=== PATIENT | female | born 1975 | race Caucasian/White ===

== ENCOUNTER 2016-12-05 10:36 | Inpatient (IN) | payer MEDICARE ==
[~2016-12-05] VITALS: Ht 154.9 cm; Wt 113.4 kg
[2016-12-05 12:42] LABS: BASOPHILS 0.3 % (0.0-2.0); EOSINOPHILS 1.3 % (0-7); HEMATOCRIT 35.5 % (36.0-48.0); HEMOGLOBIN 11.4 g/dL (12-16); MCH 30.9 pg (26.0-34.0); MCHC 32.1 g/dL (31.0-37.0); MCV 96.2 fL (80.0-100.0); MEAN PLATELET VOLUME 9.3 fL (7.4-10.4); MONOCYTES 6.2 % (2-11); NEUTROPHILS 65.2 % (40-80); PLATELET COUNT 243 10x3/uL (130-400); RBC 3.69 10x6/uL (4.00-5.40); RDW 14.5 % (11.5-14.5); WBC 8.8 10x3/uL (4.8-10.8)
[2016-12-05] MEDS ORDERED: NOVOLOG SC (12:42)
[2016-12-05] MEDS ORDERED: LASIX80 MG PO (12:43)
[2016-12-05] MEDS ORDERED: OMEPRAZOLE20 M1 PO (12:43)
[2016-12-05] MEDS ORDERED: ANASTROZOLE1 MG PO (12:44)
[2016-12-05] MEDS ORDERED: GABAPENTIN100 MG PO (12:44)
[2016-12-05] MEDS ORDERED: RENVELA800 MG PO (12:45)
[2016-12-05] MEDS ORDERED: PHOSLO667 MG PO (12:45)
[2016-12-05] MEDS ORDERED: CYCLOBENZAPRINE10 MG PO (12:46)
[2016-12-05 12:47] VITALS: BMI 426.2
[2016-12-05 13:00] LABS: APTT 28.6 SECONDS (22.8-39.4); INR 1.1 (0.85-1.17); PROTIME 14.1 SECONDS (11.6-15.0)
[2016-12-05 13:05] LABS: ANION GAP 19.5 mmol/L (8-16); CALCIUM 9.8 mg/dL (8.5-10.1); CARBON DIOXIDE 24.9 mmol/L (21.0-32.0); CREATININE - SERUM 7.3 mg/dL (0.6-1.3); POTASSIUM - SERUM 4.4 mmol/L (3.5-5.1)
--- NOTE | 2016-12-05 13:25 | NUR ---
CALLED ANESTHESIA FOR STIVEN. TALKED WITH LIBERTAD STERLING ANESTHESIA UNABLE TO GET IV. N/S DOES NOT SCAN. USES [facility] WONT LET ME PUT IN SYSTEM.
--- NOTE | 2016-12-05 13:53 | NUR ---
REPORTED 303 SUGAR TO OPERATIONS PROFESSIONAL OKAY FOR SURGERY PER RENAL.
--- NOTE | 2016-12-05 15:01 | NUR ---
1429 BLOOD SUGAR VIA FINGER STICK ORDER PER ANESTHESIA WAS [address] CANTRELL ANESTHESIA[address]
--- NOTE | 2016-12-05 15:45 | NUR ---
NO SCD, PT STATES HX BLOOD CLOTS
[2016-12-05 20:59] LABS: POTASSIUM - SERUM 4.7 mmol/L (3.5-5.1)
--- NOTE | 2016-12-05 20:59 | NUR ---
REPORT RECEIVED FROM DELMI KEITH.
--- NOTE | 2016-12-05 21:36 | NUR ---
ARRIVED TO FLOOR VIA BED, ACCOMPANIED BY HOSPITAL STAFF AND FAMILY. HEAVILY SEDATED, IS STAYING AT BEDSIDE. VSS, LEFT ARM MAXSORB DRESSINGS C/D/I. CALL LIGHT IN REACH AND ORIENTED TO UNIT. WILL CONTINUE TO MONITOR. SEE NURSE ASSESSMENT.
--- NOTE | 2016-12-05 21:59 | NUR ---
NUMBNESS REPORTED TO LEFT ARM, PULSE PALPABLE. BRUIT AND THRILL AUDIBLE AND PALPABLE. WILL CONTINUE TO MONITOR, REPOSITIONED TO RIGHT SIDE. CALL LIGHT IN REACH.
[2016-12-06 02:05] VITALS: BP 194/91
--- NOTE | 2016-12-06 02:20 | NUR ---
LYING IN BED WITH CALL LIGHT IN REACH. WILL CONTINUE WITH PLAN OF CARE.
[2016-12-06 05:19] VITALS: BP 138/76
--- NOTE | 2016-12-06 06:21 | NUR ---
FSBS 482, STAT GLUCOSE ORDERED. AWAITING LAB RESULTS
--- NOTE | 2016-12-06 07:13 | NUR ---
RECEIVED REPORT FROM AUTOMOTIVE MANAGER NURSE, ALDEN KEITH. PT IN BED, DENIES ANY NEEDS AT THIS TIME. CALL LIGHT IN REACH, FAMILY AT BEDSIDE. NAD NOTED, WILL CONTINUE TO MONITOR.
--- NOTE | 2016-12-06 07:58 | NUR ---
CALLED PHARMACY AND SPOKE WITH CHICO, INFORMED HIM THAT I NEED INSULIN FOR PT TO COVER CRITICAL LAB.
--- NOTE | 2016-12-06 08:06 | NUR ---
ADMINISTERED 10UNITS OF HUMULIN R FOR CRITICAL BLOOD SUGAR OF 492, PER SLIDING SCALE. WILL NOTIFY DOCTOR. PT FIXING TO EAT BREAKFAST, DENIES ANY NEEDS AT THIS TIME. CALL LIGHT IN REACH, FAMILY AT BEDSIDE, NAD NOTED, WILL CONTINUE TO MONITOR.
[2016-12-06 08:50] VITALS: BP 186/61
[2016-12-06 10:36] VITALS: Ht 154.9 cm; Wt 113.4 kg
--- NOTE | 2016-12-06 11:56 | NUR ---
ADMINISTERED 10 UNITS OF HUMULIN R FOR BLOOD SUGAR OF 458, PER SLIDING SCALE, ALSO GAVE 4MG OF ZOFRAN FOR C/O NUASEA. PT UP TO SIDE OF BED, DENIES ANY NEEDS AT THIS TIME. CALL LIGHT IN REACH, FAMILY AT BEDSIDE, NAD NOTED, WILL CONTINUE TO MONITOR.
--- NOTE | 2016-12-06 12:48 | NUR ---
PT C/O LEFT UPPER ARM PAIN AND NUMBNESS TO LT HAND. PULSE TO LEFT ARM PALABLE, ALSO WAS ABLE TO HEAR THE BRUI AND FILL THE THRIL AT FISTULA SITE. SITE A LITTLE SWOLLEN AND RED. WILL SEE IF PT CAN HAVE SOMETHING FOR PAIN, NAD NOTED, WILL CONTINUE TO MONITOR.
--- NOTE | 2016-12-06 13:02 | NUR ---
ADMINISTERED 0.1MG OF BUPRENEX FOR PAIN LEVEL OF 7/10. PT IN BED, STATES NAUSEA IS A LITTLE BETTER, DENIES ANY OTHER NEEDS AT THIS TIME. AT BEDSIDE, CALL LIGHT IN REACH, NAD NOTED, WILL CONITNUE TO MONITOR.
--- NOTE | 2016-12-06 14:00 | NUR ---
PT TRANSFERED TO DIALYIS VIA WHEELCHAIR, NAD NOTED.
--- NOTE | 2016-12-06 17:35 | NUR ---
RECEIVED PT BACK TO ROOM 2102, VIA WHEELCHAIR, NAD NOTED.
--- NOTE | 2016-12-06 17:58 | NUR ---
HEMODIALYSIS COMPLETED, NET FLUID REMOVAL OF ONLY 0.5 LITERS PER PATIENT'S REQUEST. EXPLAINED UF GOAL OF 3 LITERS, HOWEVER PATIENT STATES THAT SHE HAS BEEN N/V PAST 2-3 DAYS AND DOES NOT THINK SHE HAD ANY FLUID ON HER. PATIENT TOLERATED WELL, BLOOD WAS RETURNED, LINES FLUSHED, AND HEPARIN DWELLING. SOME EDUCATION ABOUT HEMOSPLIT WAS PROVIDED DURING SESSION ASWELL. PATIENT TAKEN BACK TO ROOM VIA WC.
[2016-12-06 20:50] VITALS: BP 148/60
--- NOTE | 2016-12-06 21:11 | NUR ---
SITTING UP AT BEDSIDE. FAMILY PRESENT. FSBS 314, PROVIDED 4 UNITS HUMULIN. PT HOLDING EMESIS BAG. PROVIDED ZOFRAN.
[2016-12-07 02:50] VITALS: BP 136/70
--- NOTE | 2016-12-07 04:57 | NUR ---
CALL LIGHT IN REACH, WILL CONTINUE WITH PLAN OF CARE.
[2016-12-07 05:22] VITALS: BP 130/77
[2016-12-07 05:43] LABS: BASOPHILS 0.3 % (0.0-2.0); EOSINOPHILS 0.3 % (0-7); HEMATOCRIT 31.1 % (36.0-48.0); HEMOGLOBIN 9.9 g/dL (12-16); IMMATURE GRANULOCYTES 0.6 % (0-5); LYMPHOCYTES 17.8 % (15-50); MCH 30.9 pg (26.0-34.0); MCHC 31.8 g/dL (31.0-37.0); MCV 97.2 fL (80.0-100.0); MEAN PLATELET VOLUME 9.5 fL (7.4-10.4); MONOCYTES 8.2 % (2-11); NEUTROPHILS 72.8 % (40-80); PLATELET COUNT 199 10x3/uL (130-400); RDW 14.5 % (11.5-14.5); WBC 6.9 10x3/uL (4.8-10.8)
[2016-12-07 05:57] LABS: ANION GAP 17.6 mmol/L (8-16); CALCIUM 8.5 mg/dL (8.5-10.1); CARBON DIOXIDE 29.4 mmol/L (21.0-32.0); PHOSPHOROUS 7.1 mg/dL (2.5-4.9)
[2016-12-07 06:04] LABS: CREATININE - SERUM 5.2 mg/dL (0.6-1.3)
--- NOTE | 2016-12-07 07:42 | NUR ---
received pt report. will continue plan of care. no other needs at this time. will continue to monitor.
--- NOTE | 2016-12-07 08:39 | NUR ---
PT IS ALERT. ASSESSMENT DONE PER FLOWSHEET. NO OTHER NEEDS AT THIS TIME. DC TEACHING ALSO DONE IV REMOVED PT WHEELED TO ORDC
--- NOTE | 2016-12-07 09:08 | NUR ---
Patient Name: MEREDITH ROMERO Admission Status: Elective Accout number: [id number] Admission Date: 12-05-2016 : 1975 Admission Diagnosis: Attending: JEZ Current LOS: 2 Anticipated DC Date: 12-07-2016 Planned Disposition: Home Primary Insurance: MEDICARE A & B LATE ENTRY: Discharge Planning Comments: * Is the patient Alert and Oriented? Yes 0 * How many steps to enter\exit or inside your home? 2 0 * PCP DR. EMMANUEL IN [place] 0 * [facility] [place], [place]. 0 * Preadmission Environment Home with Family 0 * ADLs Independent 0 * Equipment None 0 * Other Equipment NO MEDICAL EQUIPMENT PROVIDER PREFERENCE 0 * List name and contact numbers for known caregivers / representatives who currently or will assist patient after discharge: VERNA ROMERO, SPOUSE, 0 * Community resources currently utilized Other 0 * Please name any agencies selected above. OUTPATIENT DIALYSIS, [facility], [place], M//, 0915, DRIVES SELF TO AND FROM 0 * Additional services required to return to the preadmission environment? No 0 * Can the patient safely return to the preadmission environment? Yes 0 * Has this patient been hospitalized within the prior 30 days at any hospital? No 0 CM MET WITH PT AND SPOUSE IN ROOM TO DISCUSS DISCHARGE PLANNING AND NEEDS. PT REPORTS LIVING AT HOME INDEPENDENTLY WITH HER SPOUSE. PT HAS NO MEDICAL EQUIPMENT AND NO OUTSIDE SERVICES ASSISTING IN THE HOME. CM DISCUSSED AVAILABILITY OF HOME HEALTH, REHAB SERVICES AND MEDICAL EQUIPMENT. PT DENIES DISCHARGE NEEDS, REPORTS HER SPOUSE IS HERE TO PICK HER UP FOR DISCHARGE HOME. PT ATTENDS OUTPATIENT DIALYSIS ON // SCHEDULE IN [place]. IMPORTANT MESSAGE FROM MEDICARE PROVIDED AND EXPLAINED. Diamond Expert: Angel Bey
--- NOTE | 2016-12-09 12:37 | HP ---
PATIENT: MEREDITH ROMERO MEDICAL RECORD: [id number] ACCOUNT: [id number] LOCATION:[facility] D.2103 : [birth year] ADMISSION DATE: 12/05/16 HISTORY AND PHYSICAL EXAMINATION HISTORY OF PRESENT ILLNESS: This is a 41-year-old female that had a left radiocephalic fistula placed, 12/05/[address] Gutierrez. She had significant postoperative pain and was lethargic, and was in need of dialysis the following day 12/06/2016. She is having pain in her wrist. She is able to move her hands. No nausea or vomiting. No headache, fever or chills. All the rest of the review of system are negative. PAST MEDICAL HISTORY: 1. ESRD on dialysis in [place]. 2. Diabetes type 2 with diabetic nephropathy. 3. Type 2 diabetes. 4. Edema. 5. Hyperphosphatemia. 6. Secondary hyperparathyroidism. HOME MEDICATIONS: Arimidex 1 mg a day, PhosLo with meals t.i.d. 1-2 667 mg tablets, Neurontin 100 mg p.o. at bedtime, Lasix 80 mg p.o. b.i.d., and insulin sliding scale. ALLERGIES: NKDA. PAST SURGICAL HISTORY: 1. Tunneled catheter placement. 2. Radiocephalic AV fistula on the left, 12/05/2012. SOCIAL HISTORY: She is . No tobacco, alcohol or illicit drugs. He lives in [facility]. PHYSICAL EXAMINATION: VITAL SIGNS: 152/70, 92 heart rate, 18 respiratory rate, this morning. GENERAL: She is alert postoperatively, but somewhat lethargic, but no focal neurological deficit and is requesting pain medication. indicated that her mental status is at baseline. HEENT: Normocephalic, atraumatic. Cranial nerves II through XII are intact. NECK: No JVD or thyromegaly. Her tunnel catheter is clean with no sign of infection. EXTREMITIES: Left radiocephalic fistula with a thrill. She is able to move her hand. +2 brachial pulses even bilateral. Positive lower extremity edema. NEUROLOGIC: No focal neurological deficit. LABORATORY DATA: Consistent with ESRD. H&H is 11.4/35.5 with a white count of 8800 and a platelet count of 243,000. INR was 1.1. ASSESSMENT AND PLAN: 1. Status post AV fistula by Dr. Gutierrez with postoperative pain. 2. Diabetes mellitus, on a sliding scale. 3. Hyperphosphatemia. We will continue her PhosLo. 4. Anemia of CKD. If she stays in the hospital, we will continue her erythropoietin. 5. Hypertension. Did not see any medications on her med list, but we will HISTORY AND PHYSICAL [id number] MEREDITH ROMERO follow her blood pressure. PLAN: 1. Appreciate Dr. Gutierrez. 2. Dialysis as scheduled. 3. Pain control. 4. Follow hematocrit, BMP and phosphorus. TRANSINT:[id number] Voice Confirmation ID: [id number] DOCUMENT ID: [id number] JESÚS BARBER MD at 1237 CC: [id number] DICTATION DATE: 12/07/16719 VENEER SAWYER: 12/07/16 0743 DIS IN 12/07/16 [address] [place] [address]
--- NOTE | 2016-12-14 13:07 | OP ---
PATIENT NAME: MEREDITH LYONS MEDICAL RECORD: [id number] :[birth year] LOCATION:D. D.2103 ADMISSION DATE:12/05/16 SURGEON: MAMIE OLIVAS MD DATE OF OPERATION: 12/05/2016 REFERRING PHYSICIAN: Dr. Jose Renee and Dr. Chao of [place]. PREOPERATIVE DIAGNOSES: End-stage renal disease with a complication of a dialysis access AV fistula in the left forearm with chronic total occlusion of the proximal radial artery and filling of the fistula via the ulnar artery and palmar arch with now an arterial anastomotic stenosis and also a severe venous outflow stenosis in the fistula. Additionally, the patient is status post bilateral mastectomies and a left sentinel lymph node biopsy for breast cancer. She has mild contracture or loss of abduction of the left arm and shoulder. She has no lymphedema. POSTOPERATIVE DIAGNOSES: End-stage renal disease with a complication of a dialysis access AV fistula in the left forearm with chronic total occlusion of the proximal radial artery and filling of the fistula via the ulnar artery and palmar arch with now an arterial anastomotic stenosis and also a severe venous outflow stenosis in the fistula. Additionally, the patient is status post bilateral mastectomies and a left sentinel lymph node biopsy for breast cancer. She has mild contracture or loss of abduction of the left arm and shoulder. She has no lymphedema. OPERATION PERFORMED: Ligation of nonfunctional though still patent left radiocephalic AV fistula and then implantation of a left axillary-axillary loop [place] hybrid PTFE AV graft with a 5 cm long 8 mm diameter Viabahn stent incorporated in the venous end of the graft and facilitating anastomosis that was very small and difficult to approach the axillary vein. All this was done with axillary vein, contrast injection and distal subtraction angiography and then at the completion of the operation also, the patient had a 19-cm HemoSplit tunneled central dialysis catheter inserted via the right internal jugular vein using fluoroscopy and ultrasonic guidance. SURGEON: Mamie Olivas MD ANESTHESIA: General with LMA per CV TECH. PREOPERATIVE NOTE: Ms. Lyons is a 41-year-old diabetic patient with end-stage renal disease, who has been on dialysis now for about 2 years with ____ radiocephalic Sole type AV fistula constructed 3 years ago. She has had problems with cannulation being difficult and her dialysis efficiency has diminished severely. She had a fistulogram done yesterday at [facility] by Dr. Renee and she was found to have an outflow stenosis in the cephalic vein, arterial anastomotic stenosis and chronic total occlusion of the proximal radial artery with filling of the fistula totally via the ulnar artery and via the palmar arch. She was referred to me and we agreed yesterday that she would be operated today and that I would plan to ligate the existing fistula and consider performing a brachial artery to cephalic vein arteriovenous fistula or implanting the graft. Our concern is that she is at severe risk of steal. She will also with that scenario require a dialysis catheter. She went this morning to [facility] as an outpatient to have dialysis at 6:30 in the morning and she was found that although the fistula was patent, it could not be cannulated successfully, so she has not had dialysis in over 48 hours. OPERATIVE REPORT [id number] MEREDITH LYONS DESCRIPTION OF PROCEDURE: With the patient under general anesthesia, she is prepped and draped in sterile manner. I examined her arm with ultrasound and saw the large cephalic vein and I really did not see a stenotic area in the outflow vein. The patient's brachial artery in the antecubital space was quite small in fact her axillary artery and even the axillary vein were quite small. I explored the brachial artery through a transverse antecubital incision and down the brachial artery to be small and the cephalic vein or median cubital vein at that level quite large. I did not think that a primary AV fistula there would solve the problem as she would still be a very high risk for developing a steal syndrome and I noted on ultrasound that the cephalic vein in the upper arm was rather deep at least a centimeter or more in depth. It might be a difficult access requiring translocation. I then went on to expose the AV fistula just proximal to the anastomosis and through another linear vertical incision, I ligated the fistula doubly with 2-0 silk ties. I then committed to going ahead with an axillary-axillary loop AV graft as the access, most likely to avoid or least likely to cause [place] and provide the earliest dialysis access. I made a transverse axillary incision. I found that the patient's contracture in the shoulder area did make it difficult to expose the area fully and the dissection of the axillary artery and axillary vein was quite difficult due to patient's obesity and the loss of abduction in the shoulder. The vein was quite small and I thought it would be best to use a hybrid type of graft using an endovascular stent type anastomosis. I chose a 6-mm diameter 50 cm long hybrid stent with an 8 mm diameter 5 cm long Viabahn stent homograft. I accessed the axillary vein with micropuncture technique and this led and subsequently a 6-Macedonian introducer was placed. Contrast injection with digital subtraction angiography demonstrated patency of the axillary and subclavian veins though the axillary vein, particularly the distal half was a very small caliber. I was then able to place a 12-Macedonian peel-away introducer over a guidewire and through that successfully inserted the Viabahn stent end of the hybrid graft and deployed the stent and then performed a venography through the new graft and demonstrated a satisfactory positioning of the graft, although the vein is small. There was free flow of contrast through the area. I placed the graft in a subcutaneous tunnel as close to the surface or as close to the skin as possible. I utilized the antecubital incision as a counter incision and 1 additional counter incision was placed on the lateral aspect of the arm. The graft was brought back to the axillary wound and the axillary artery was occluded with doubly looped Silastic tapes. It was opened and then flushed proximally and distally with heparinized saline and the graft was shortened a bit and bevelled and anastomosed end-to-side to the artery with running 6-0 Prolene. Hemostasis was additionally completed with some fibrillar hemostatic material and when the occluding loops and clamps were released, flow was established in the graft and hemostasis was adequate. I performed a completion angiogram through a micropuncture catheter in the apex of the loop of the graft and demonstrated that the venous outflow was satisfactory, although I would have a preferred the larger diameter axillary vein and I demonstrated that there was indeed flow in the graft and with outflow occlusion demonstrated a satisfactory appearance of the arterial anastomosis with good flow distally into the arm. The wounds were all irrigated with Ancef/gentamicin solution and infiltrated with 0.25% Marcaine with epinephrine and closed with interrupted inverted 3-0 Vicryl and running intracuticular 4-0 Monocryl. No drain was utilized. The incisions were all sealed with Dermabond glue and dressed with Maxorb Ag, Tegaderm and Cavilon skin prep. The right neck and chest were then exposed, they had been prepped and draped at the beginning of the procedure. I used ultrasound to locate the right internal OPERATIVE REPORT [id number] MEREDITH LYONS jugular vein. It was of normal caliber and fully compressible with no sonographic abnormalities. I made an incision at the base of the neck on the right over the vein and through that incision placed a needle and guidewire under ultrasound guidance. Under fluoroscopy, the guidewire was placed in the right atrium and serial dilators passed over the wire and lastly, a dilator peel-away introducer was inserted. I chose a 19-cm long HemoSplit, identified the proper entry site and placed the catheter through that and through a subcutaneous tunnel up to the cervical wound and the catheter was inserted through the peel-away sheath and it was removed. Fluoroscopy demonstrated satisfactory positioning of the catheter well into the right atrium without any kinks or other complications. Both lumens of the catheter were accessed and aspirated, free return of blood confirmed from each. They were then flushed with saline ____ and then heparin locked with 100 unit per cc heparin and clamped and capped. The incisions were closed with interrupted inverted 3-0 Vicryl and the catheter sutured to the skin with 2-0 silk. Dermabond glue was used to seal the wounds and they were dressed with Maxorb AG, Tegaderm and Cavilon skin prep. The patient was then awakened from her anesthetic and in stable condition taken to the recovery room. There, we have requested a chest x-ray as well as a serum potassium and blood sugar. The patient will need to remain in the hospital in this evening and she will have dialysis here either this evening or tomorrow. She will be able to return to her home in [place], [place] in a day or two when we know that she has a reliable dialysis access and her postoperative pain and any other complications adequately controlled. I will plan to see her back in my office in 2 weeks for wound check and it is quite possible that soon after that, she will be able to start dialysis with her new graft. I do think that we should plan on her having a fairly early followup fistulogram. It may yet be necessary to perform balloon angioplasty of the axillary vein proximal to the stent and possibly even insert additional stenting to a more proximal site in the vein. Blood loss estimated at 200 cc was unreplaced. All sponges, instruments and needles were accounted for. No drain was used and no surgical specimen was submitted for histopathology. TRANSINT:[id number] Voice Confirmation ID: [id number] DOCUMENT ID: [id number] MAMIE OLIVAS MD at 1307 CC: JOSE RENEE MD and CHRISTIANE CHAO III MD [id number] DICTATION DATE: 12/05/162050 PLATE COLORER: 12/05/162229 DIS IN 12/07/16 [place] [id number] [place] [id number]
== END 2016-12-07 08:39 | disposition home or self-care (01) | DRG 252 ==
LOC: D.OPS 10:36 → D.M2 19:28 → D.OPS 22:01 → D.M2 23:17
PROVIDERS: Internal Medicine Nephrology; Surgery; ADMIT Internal Medicine Nephrology
DX: T82.590A Other mechanical complication of surgically created arteriovenous fistula, initial encounter (principal); N18.6 End stage renal disease; I12.0 Hypertensive chronic kidney disease with stage 5 chronic kidney disease or end stage renal disease; Z68.42 Body mass index [BMI] 45.0-49.9, adult; E11.22 Type 2 diabetes mellitus with diabetic chronic kidney disease; Z99.2 Dependence on renal dialysis; Z79.4 Long term (current) use of insulin; E11.21 Type 2 diabetes mellitus with diabetic nephropathy; E21.3 Hyperparathyroidism, unspecified; D63.1 Anemia in chronic kidney disease; E66.01 Morbid (severe) obesity due to excess calories; K21.9 Gastro-esophageal reflux disease without esophagitis

== ENCOUNTER 2016-12-28 10:05 | Inpatient (IN) | payer MEDICARE ==
[~2016-12-28] VITALS: Ht 154.9 cm; Wt 108.2 kg
[~2016-12-28 10:05] MED LIST: ANASTROZOLE1 MG PO; CYCLOBENZAPRINE10 MG PO; GABAPENTIN100 MG PO; LASIX80 MG PO; NOVOLOG SC; OMEPRAZOLE20 M1 PO; PHOSLO667 MG PO; RENVELA800 MG PO
[2016-12-28 12:13] VITALS: BMI 47.3
[2016-12-28 12:30] LABS: BASOPHILS 0.3 % (0.0-2.0); EOSINOPHILS 1.4 % (0-7); HEMATOCRIT 31.5 % (36.0-48.0); HEMOGLOBIN 9.8 g/dL (12-16); IMMATURE GRANULOCYTES 0.3 % (0-5); LYMPHOCYTES 25.9 % (15-50); MCH 30.3 pg (26.0-34.0); MCHC 31.1 g/dL (31.0-37.0); MCV 97.5 fL (80.0-100.0); MEAN PLATELET VOLUME 9.3 fL (7.4-10.4); MONOCYTES 5.3 % (2-11); NEUTROPHILS 66.8 % (40-80); PLATELET COUNT 168 10x3/uL (130-400); RBC 3.23 10x6/uL (4.00-5.40); RDW 14.3 % (11.5-14.5); WBC 5.9 10x3/uL (4.8-10.8)
[2016-12-28 12:37] LABS: ANION GAP 13.2 mmol/L (8-16); CALCIUM 8.4 mg/dL (8.5-10.1); CARBON DIOXIDE 29.5 mmol/L (21.0-32.0); CREATININE - SERUM 2.9 mg/dL (0.6-1.3); POTASSIUM - SERUM 3.7 mmol/L (3.5-5.1)
[2016-12-28 12:47] LABS: APTT 31.9 SECONDS (22.8-39.4); INR 1.03 (0.85-1.17); PROTIME 13.4 SECONDS (11.6-15.0)
[2016-12-28 19:54] VITALS: BP 162/68
[2016-12-28] MEDS ORDERED: CYCLOBENZAPRINE10 MG PO (20:05)
[2016-12-28] MEDS ORDERED: LASIX80 MG PO (20:05)
[2016-12-28] MEDS ORDERED: GABAPENTIN100 MG PO (20:07)
[2016-12-28] MEDS ORDERED: OMEPRAZOLE20 M1 PO (20:09)
[2016-12-28] MEDS ORDERED: PHOSLO667 MG PO (20:09)
[2016-12-28] MEDS ORDERED: RENVELA0.8 GM PO (20:11)
--- NOTE | 2016-12-28 20:18 | NUR ---
RECIEVED PT TO FLOOR FROM POST OP VIA STRETCHER. LETHARGIC/SLEEPING. WILL ROUSE TO VOICE AND ANSWER QUESTIONS. ACCOMPANIED BY SPOUSE. BEDSIDE REPORT RECIEVED FROM RAYMUNDO. VSS. VS BEING MONITORED EVERY 15 MINUTES. LEFT AVF WITH DRESSING C/D/I AND ARM ELEVATED ON PILLOW. RIGHT CW HEMOSPLIT WITH NS @ KVO TO BLUE PORT. O2 @ 2L/NC WITH NONLABORED RESPIRATIONS. POST OP NURSE STATES PT HAS ALREADY RECIEVED THE ORDERED VANCOMYCIN AND THE ANCEF.
--- NOTE | 2016-12-28 22:40 | NUR ---
PT DOZING, AT BEDSIDE. NS @ KVO CONTINUING TO BLUE PORT ON HEMOSPLIT. PT HAS BEEN UP TO BATHROOM X 1 AND GAIT IS STEADY AND REQUIRES ONLY SUPERVISION. CPOC.
[2016-12-29] VITALS (7 sets, daily range): BP systolic 124–166; BP diastolic 43–68; Ht 154.9 cm; Wt 108.2 kg
--- NOTE | 2016-12-29 07:19 | NUR ---
PT SITTING UP IN BED DENIES NEEDS WILL CONT TO MONITOR.
--- NOTE | 2016-12-29 10:11 | NUR ---
PT BS 372. MARY RENAL LINUS ORDERED MEDS. CALLED PHARM FOR THEM TO BRING UP INSULINS. SPOKE TO VICENTE
--- NOTE | 2016-12-29 13:09 | NUR ---
PT SITTING UP TO CHAIR DENIES NEEDS. WILL CONT TO MONITOR.
--- NOTE | 2016-12-29 15:13 | NUR ---
CALLED PHARM FOR PT MEDICATIONS TO BE BROUGHT UP
--- NOTE | 2016-12-29 15:45 | NUR ---
PT FSBS 507 PT IS ALERT AND ORIENTED. PAGED MARY BARRIGA. SHE CALLED BACK SAID TO GIVE PT 20 UNITS HUMULIN NOW AND THEN ORDER NPH 10 UNITS ALSO. SAID THAT PT WAS SUPPOSED TO BE BRINGING INSULIN PUMP FROM HOME SOON. GIVING 20 UNITS HUMULIN, HAVE TO WAIT FOR PHARM TO BRING UP NPH THEN WILL GIVE. WILL RECHECK PT IN A COUPLE OF HOURS AND SEE IF SUGAR HAS DROPPED IF NOT WILL TREAT AGAIN.
--- NOTE | 2016-12-29 18:41 | NUR ---
PT BS WAS 440. CALLED MARY BARRIGA. SHE ORDERED ANOTHER DOSE OF HUMULIN 20 UNITS ONE TIME. AND NPH 5 UNITS ONE TIME. I WAS ABLE TO SCAN THE HUMULIN BECAUSE IT WAS ALREADY ON THE MAR AN UNSCHEDULED DOSE. (PHARM WAS NOT HERE TO VERIFY THE MEDS), THE NPH HOWEVER I WAS NOT ABLE TO SCAN ON THE EMAR BECAUSE THE PHARM DID NOT VERIFY THEM. I VERIFIED BOTH OF THESE INSULINS WITH MULTIPLE NURSES INCLUDING MICHEAL KEITH AND LYUBOV COLLADO. I DID GIVE BOTH INSULINS BUT WAS UNABLE TO SCAN THE NPH WILL PASS ON IN REPORT TO NIGHT NURSE.
--- NOTE | 2016-12-29 18:54 | NUR ---
CHANGED HEMOSPLIT DRESSING SOLE TIER INITIATED. SIGNED AND DATED.
--- NOTE | 2016-12-29 19:30 | NUR ---
ASSESSMENT COMPLETE, DENIES NEEDS AT THIS TIME. HOB UP SR UP X2, C/L IN REACH. FAMILY MEMBERS AT BEDSIDE FOR NIGHT. HEMESPLIT NOTED TO CHEST. ON RA. CONTINUE TO MONITOR.
[2016-12-30 02:01] VITALS: BP 101/50
[2016-12-30 05:48] VITALS: BP 132/80
[2016-12-30 06:30] LABS: BASOPHILS 0.3 % (0.0-2.0); EOSINOPHILS 1.9 % (0-7); HEMATOCRIT 30.1 % (36.0-48.0); HEMOGLOBIN 9.5 g/dL (12-16); IMMATURE GRANULOCYTES 0.4 % (0-5); MCH 30.1 pg (26.0-34.0); MCHC 31.6 g/dL (31.0-37.0); MEAN PLATELET VOLUME 9.8 fL (7.4-10.4); MONOCYTES 6.8 % (2-11); NEUTROPHILS 62.6 % (40-80); PLATELET COUNT 136 10x3/uL (130-400); RBC 3.16 10x6/uL (4.00-5.40); RDW 14.3 % (11.5-14.5); WBC 6.9 10x3/uL (4.8-10.8)
[2016-12-30 06:31] LABS: MCV 95.3 fL (80.0-100.0)
[2016-12-30 06:35] LABS: ANION GAP 17.3 mmol/L (8-16); CALCIUM 9.1 mg/dL (8.5-10.1); CARBON DIOXIDE 25.7 mmol/L (21.0-32.0); GENTAMICIN - TROUGH 2.1 ug/mL (0.5-2.0); MAGNESIUM - SERUM 2.2 mg/dL (1.8-2.4); PHOSPHOROUS 6.8 mg/dL (2.5-4.9)
[2016-12-30 06:36] LABS: CREATININE - SERUM 5.6 mg/dL (0.6-1.3)
[2016-12-30 08:44] VITALS: BP 151/64
--- NOTE | 2016-12-30 10:16 | NUR ---
PT IS ALERT. ASSESSMENT DONE PER FLOWSHEET. NO OTHER NEEDS AT THIS ITME. WILL CONTINUE TO MONTIOR.
[2016-12-30 13:13] VITALS: BP 118/54
[2016-12-30 17:01] VITALS: BP 146/65
--- NOTE | 2016-12-30 19:30 | NUR ---
SITTING UP ON SIDE OF BED, C/O LEFT UPPER ARM SWELLING AT LOOP GRAFT SITE. SM AMT OF OLD BLOOD NOTED ON DRSG. INSTRUCTED TO KEEP ELEVATED UP ON PILLOWS FOR C & C. RT CHEST HEMESPLIT CDI. HEPARINIZED AND LOCKED. UP AD DIANELYS W/O DIFF. HOB UP SR UP X2, C/L IN REACH. CONTINUE TO MONITOR.
--- NOTE | 2016-12-30 20:33 | NUR ---
FSBS "376" COVERED WITH 24 UNITS REGULAR INSULIN PER S/S ORDERS.LANTUS 10 UNITS ADM PER ORDERS. MARCIAL INJS WELL. ENCOURAGED TO KEEP LEFT ARM UP ON PILLOW FOR C & C. C/L IN REACH. HOB UP SR UP X2, CONTINUE TO MONITOR. FAMILY AT BEDSIDE FOR NIGHT.
[2016-12-30 21:30] VITALS: BP 133/47
[2016-12-31 00:45] VITALS: BP 115/50
--- NOTE | 2016-12-31 00:51 | NUR ---
BENADRYL 25MG PO GIVEN AFTER C/O ITCHING TO THE LEFT ARM MADE, AND DR BARRAZA'S SERVICE NOTIFIED OF NEED FOR MEDICATION. RECEIVED NEW ORDER AND MEDICATION ADMINISTERED W/O DIFF. C/L IN REACH. ENCOURAGED TO KEEP LEFT ARM ELEVATED. UNDERSTANDING VERBALIZED. HOB UP SR UP X2, C/L IN REACH. CONTINUE TO MONITOR.
--- NOTE | 2016-12-31 02:17 | NUR ---
VOICES NO C/O ITCHING AT THIS TIME. C/L IN REACH.
[2016-12-31 04:30] VITALS: BP 108/57
[2016-12-31 05:10] LABS: BASOPHILS 0.2 % (0.0-2.0); EOSINOPHILS 2.3 % (0-7); HEMATOCRIT 29.5 % (36.0-48.0); HEMOGLOBIN 9.2 g/dL (12-16); IMMATURE GRANULOCYTES 0.3 % (0-5); LYMPHOCYTES 30.8 % (15-50); MCH 30.2 pg (26.0-34.0); MCHC 31.2 g/dL (31.0-37.0); MCV 96.7 fL (80.0-100.0); MEAN PLATELET VOLUME 9.2 fL (7.4-10.4); MONOCYTES 6.2 % (2-11); NEUTROPHILS 60.2 % (40-80); PLATELET COUNT 149 10x3/uL (130-400); RBC 3.05 10x6/uL (4.00-5.40); RDW 14.1 % (11.5-14.5)
[2016-12-31 05:51] LABS: ANION GAP 15.8 mmol/L (8-16); CALCIUM 8.8 mg/dL (8.5-10.1); GENTAMICIN - RANDOM 1.2 ug/mL (0.5-2.0); POTASSIUM - SERUM 3.8 mmol/L (3.5-5.1); VANCOMYCIN - RANDOM 27.9 ug/mL (10.0-20.0)
--- NOTE | 2016-12-31 07:29 | NUR ---
AM ROUNDING DONE, MALE MEMBER IN CHAIR ASLEEP AND ANOTHER FEMALE (SMALL) IN BED ASLEEP WITH PATIENT. ON ROOM AIR. WILL ASSESS WHEN AWAKE.
[2016-12-31 08:00] VITALS: BP 140/65
[2016-12-31 12:00] VITALS: BP 129/63
--- NOTE | 2016-12-31 12:29 | NUR ---
PATIENT IS UP AND ABOUT IN ROOM, IN ROOM WITH HER. DENIES ANY NEEDS, WILL CONTINUE TO MONITOR.
--- NOTE | 2016-12-31 13:24 | NUR ---
1322-DRESSING TO RIGHT HEMISPLIT CHANGED USING STERILE TECHNIQUE. DATED AND SIGNED. TOLERATED WELL.
--- NOTE | 2016-12-31 13:42 | NUR ---
Patient Name: MEREDITH ROMERO Admission Status: Elective Accout number: [id number] Admission Date: 12-30-2016 : 1975 Admission Diagnosis: Attending: ISAIAH Current LOS: 1 Anticipated DC Date: 12-31-2016 Planned Disposition: Home Primary Insurance: MEDICARE A & B Is the patient Alert and Oriented? Yes * How many steps to enter\exit or inside your home? TWO * PCP DR EMMANUEL IN [place] * Pharmacy [facility] * Preadmission Environment Home with Family * ADLs Independent * Equipment None * List name and contact numbers for known caregivers / representatives who currently or will assist patient after discharge: VERNA ROMERO, , * Community resources currently utilized None * Please name any agencies selected above. OUTPATIENT DIALYSIS AT [facility] IN [facility] M/W/F AT 0915 * Additional services required to return to the preadmission environment? No * Can the patient safely return to the preadmission environment? Yes * Has this patient been hospitalized within the prior 30 days at any hospital? Yes Discharge Planning Comments: CM MET WITH PATIENT TO ASSESS DC PLAN/NEEDS. PT STATED SHE LIVES AT HOME WITH HER FAMILY AND IS INDEPENDENT IN HER CARE/ADLS'S. STATED SHE DRIVES HERSELF TO/FROM DIALYSIS AND NEEDED. WILL DRIVE HER HOME AT DISCHARGE. PT STATED SHE HAS NO MEDICAL EQUIPMENT AT HOME AND DENIED NEED FOR ANY DME. SHE STATED SHE DOES NOT CURRENTLY HAVE HH SERVICES AND DOES NOT NEED ANY OUTSIDE SERVICES AT DISCHARGE. SHE VOICED NO DC NEEDS. IMM PROVIDED AND EXPLAINED. Mechanical Cad Designer: Ene Murray RN CM
--- NOTE | 2016-12-31 14:02 | NUR ---
VERBAL AND WRITTEN DISCHARGE INSTRUCTIONS GIVEN TO PATIENT AND SPOUSE. DISCHARGED HOME VIA WHEELCHAIR.
--- NOTE | 2017-01-01 09:39 | NUR ---
PATIENT PATHWAYS - Patient is from [facility] on a MWF 1st shift schedule. Medical records forwarded to OPHD unit. Patient dischaged before PRL could meet with patient. BMM PRL
--- NOTE | 2017-01-07 08:57 | DS ---
PATIENT:MEREDITH ROMERO :[birth year] MEDICAL RECORD: [id number] DISCHARGE SUMMARY ADMISSION DATE: 12/30/16 DISCHARGE DATE: 12/31/16 This discharge took greater than 30 minutes. HISTORY: This ia a 41-year-old female that had her left brachial basilic AV fistula revised by Dr. Gutierrez. She was in need of dialysis, but decided to go ahead and go home. I might be able to talk her into staying for dialysis as she is due for her treatment in [place]. REVIEW OF SYSTEMS: All review of systems are negative. PHYSICAL EXAMINATION VITAL SIGNS: She is 142/72 by the MD, 72 heart rate. GENERAL: She is alert and oriented times 3. HEENT: Normocephalic, atraumatic. Clear nares. Clear throat. NECK: No JVD or thyromegaly. EXTREMITIES: Tunnel catheter was clean with no drainage and left upper brachiobasilic fistula with positive bruit. She is able to move her hands and text on her phone now. No clubbing, cyanosis. Trace lower extremity edema. MEDICATIONS: We will continue her home medications of Lasix 80 b.i.d., Arimidex 1 mg a day, Neurontin 100 mg at night, Renvela 800 mg 3 times a day with meals, Flexeril 10 t.i.d., Prilosec 20 a day, PhosLo 667 with meals t.i.d. She will follow up at dialysis. I spent greater than 30 minutes trying to arrange dialysis for both here as well as an outpatient, reviewed her medications, reviewed her surgical record and we will discharge her to home. Stable on discharge. TRANSINT:[id number] Voice Confirmation ID: [id number] DOCUMENT ID: [id number] JESÚS BARBER MD at 0857 CC: [id number] DICTATION DATE: 12/31/16 1258 TECHNICAL PUBLICATIONS WRITER: 01/01/17 0214 DIS IN 12/31/16 [facility] [address] [id number]
--- NOTE | 2017-01-08 11:25 | OP ---
PATIENT NAME: MEREDITH LYONS MEDICAL RECORD: [id number] :77 LOCATION:D.M2 D.2129 ADMISSION DATE:12/30/16 SURGEON: MAMIE OLIVAS MD DATE OF OPERATION: 12/30/2016 She was operated on 12/28/2016. PREOPERATIVE DIAGNOSIS: Early thrombosis of left upper extremity arteriovenous graft. 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 OPERATION PERFORMED: Open revision with thrombectomy of left axillary-axillary loop PTFE AV graft including a fistulogram and also balloon angioplasty of the left axillary vein and insertion of an 8 mm x 10 cm Viabahn [place] PTFE covered stent in the axillary vein stenosis. SURGEON: Mamie Olivas MD ANESTHESIA: Regional block and IV sedation per DRILL RUNNER. PREOPERATIVE NOTE: Ms. Lyons is a 41-year-old morbidly obese diabetic white female patient from [place], [place]. She is a long-term end-stage renal disease. The patient on chronic hemodialysis in [place], patient of Dr. Chao. She had had a problematic left wrist radiocephalic fistula, which Dr. Engle studied with fistulography at [facility] and subsequently referred to me for creation of a new access. About 3 weeks ago, I operated her and implanted a left axillary looped [place] hybrid PTFE graft. The patient's operation was complicated by her obesity and her diminutive blood vessels even a small axillary vein, which was in part the reason for using a hybrid graft. At the time of graft implantation, I was concerned about the subsequent axillary venous stenosis developing and had thought that likely she would need early surveillance fistulogram perhaps before the graft could be utilized. It has not been used, but the patient since that operation, has been quite ill with protracted postoperative nausea and vomiting, which actually led to her being rehospitalized in [place] and stay of several days in the intensive care unit. She came back and saw me for her first postoperative visit in the office yesterday, which also was the first time I learned about her postoperative complications and I found that her graft was thrombosed. It has never been utilized. She has been dialyzing with a right internal jugular tunneled HemoSplit dialysis catheter, which I inserted at the same time as the AV graft implantation. She will obviously need to continue using the catheter for now. She is brought to the operating room for a fistulogram and indicated procedures including thrombectomy or mechanical thrombolysis. Under regional block and IV sedation, the patient was prepped and draped in sterile manner. I examined the graft with ultrasound and confirmed that it was thrombosed. I attempted to access percutaneously, but found that the graft was not seated within the tunnel, so this led to making an incision over the medial or venous limb of the graft down just above the antecubital space. The graft was exposed and accessed with a 6-Nigerien introducer and the thrombus removed from the venous limb of the graft with an AngioJet catheter. I actually found OPERATIVE REPORT [id number] MEREDITH LYONS that the graft was so loose and so redundant now within the tunnel that was difficult to pass the AngioJet. A contrast injection revealed creation of a significant S-loop and kink. Due to do this redundancy, attempting to pass the AngioJet catheter and I realized that this was going to require a minimum open revision, another incision just below the axilla and exposed the venous anastomosis, which is a Viabahn stent inserted through a venotomy. I transected the graft and actually I removed a segment and performed a Caleb embolectomy catheter, thrombectomy of the body and arterial limb of the graft, but I was unable to open the arterial anastomosis. I was able to open the venous runoff and then injected contrast and found that there was almost total occlusion of the axillary vein immediately proximal to the end of the hybrid graft Viabahn stent portion. I subsequently dilated this over a guidewire with an 8 mm diameter high pressure Bard Quest 8 mm diameter angioplasty balloon. Contrast injection revealed extreme irregularity of this area with residual thrombus and possible extravasation. I subsequently seal this off inserting an 8 mm diameter [place] Viabahn PTFE covered stent. This overlapped the hybrid graft stent portion and passed well up into the axillary vein and then to the subclavian just distal to the confluence with the cephalic vein. Contrast injection revealed good flow. There was no valve present there and the size match appeared to be good. The stent was expanded with the angioplasty balloon. The patient was heparinized with a total of 3000 units of heparin and the venous limb flushed with heparinized saline. The arterial limb then near the arterial anastomosis, was opened and the thrombus removed with the Caleb embolectomy catheter and brisk inflow of arterial blood restored, graftotomy was closed with running 6-0 Prolene. Cultures of the graft, which was loose in the tunnel were obtained for aerobic and anaerobic organisms. There was no grossly purulent material present, although there was a slimy feel to the surface of the graft as with biofilm and I feared that the graft is infected and may yet have to be removed. I rinsed the tunnel and graft, then externally with some Ancef and gentamicin solution, flushed the graft again with heparinized saline and resected an inch of the graft and did end-to-end anastomosis with running 6-0 Prolene and when I released the occluding clamps and loops, excellent flow was reestablished and the graft and the suture lines were hemostatic. The wound was irrigated again with Ancef and gentamicin solution, were infiltrated with 0.25% Marcaine with epinephrine and closed with interrupted 3-0 Vicryl and running intracuticular 4-0 Monocryl and Dermabond glue. They were dressed with Maxorb Ag, Tegaderm and Cavilon skin prep. At that point, the patient was awakened and taken to the recovery room in stable condition. Blood loss during the operation was probably 150 to perhaps as much of 200 mL. None was replaced intraoperatively. All sponges, instruments and needles were accounted for. No drain was used and no surgical specimen was submitted for histopathology. Only the aerobic and anaerobic culture swabs. TRANSINT:[id number] Voice Confirmation ID: [id number] DOCUMENT ID: [id number] CC: Jhony Summers [place] MAMIE OLIVAS MD at 1125 CC: VÍCTOR SUMMERS MICHAEL MD and CHRISTIANE CHAO III [id number] DICTATION DATE: 12/30/16 1202 BIG DATA ANALYTICS LEAD: 12/30/16 1320 DIS IN 12/31/16 [facility] [address] [facility] [place] [address]
== END 2016-12-31 14:03 | disposition home or self-care (01) | DRG 252 ==
LOC: D.OPS 10:05 → D.M2 10:05 → D.OPS 12:30 → D.M2 19:08 → D.OPS 12-30 11:17 → D.M2 12-30 11:18
PROVIDERS: Internal Medicine Nephrology; Surgery; ADMIT Internal Medicine Nephrology
PROC: 05780DZ Dilation of Left Axillary Vein with Intraluminal Device, Open Approach (ICD-10-PCS; principal; 2016-12-28 12:30)
PROC: 03C60ZZ Extirpation of Matter from Left Axillary Artery, Open Approach (ICD-10-PCS; 2016-12-28 12:30)
PROC: B51W1ZZ Fluoroscopy of Dialysis Shunt/Fistula using Low Osmolar Contrast (ICD-10-PCS; 2016-12-28 12:30)
DX: T82.868A Thrombosis due to vascular prosthetic devices, implants and grafts, initial encounter (principal); N18.6 End stage renal disease; I12.0 Hypertensive chronic kidney disease with stage 5 chronic kidney disease or end stage renal disease; Z68.42 Body mass index [BMI] 45.0-49.9, adult; Y83.8 Other surgical procedures as the cause of abnormal reaction of the patient, or of later complication, without mention of misadventure at the time of the procedure; E11.22 Type 2 diabetes mellitus with diabetic chronic kidney disease; Z99.2 Dependence on renal dialysis; Z79.4 Long term (current) use of insulin; E11.40 Type 2 diabetes mellitus with diabetic neuropathy, unspecified; E66.9 Obesity, unspecified; Z85.3 Personal history of malignant neoplasm of breast

== ENCOUNTER 2017-02-01 09:12 | Inpatient (IN) | payer MEDICARE ==
[~2017-02-01] VITALS: Ht 154.9 cm; Wt 106.9 kg
[~2017-02-01 09:12] MED LIST changes: +RENVELA0.8 GM PO
[2017-02-01] MEDS ORDERED: NOVOLOG INJ FLE SQ (10:13)
[2017-02-01] MEDS ORDERED: ULTRAM50 MG PO (10:15)
[2017-02-01 10:18] LABS: BASOPHILS 0.5 % (0.0-2.0); EOSINOPHILS 2.4 % (0-7); HEMATOCRIT 37.4 % (36.0-48.0); IMMATURE GRANULOCYTES 0.3 % (0-5); LYMPHOCYTES 26.1 % (15-50); MCH 30.2 pg (26.0-34.0); MCHC 32.1 g/dL (31.0-37.0); MCV 94.2 fL (80.0-100.0); MEAN PLATELET VOLUME 9.6 fL (7.4-10.4); MONOCYTES 5.9 % (2-11); NEUTROPHILS 64.8 % (40-80); RBC 3.97 10x6/uL (4.00-5.40); WBC 5.9 10x3/uL (4.8-10.8)
[2017-02-01 10:22] LABS: CALCIUM 9.7 mg/dL (8.5-10.1); CARBON DIOXIDE 23.4 mmol/L (21.0-32.0); CREATININE - SERUM 6.6 mg/dL (0.6-1.3); POTASSIUM - SERUM 4.4 mmol/L (3.5-5.1)
[2017-02-01 10:26] LABS: PLATELET COUNT 203 10x3/uL (130-400)
[2017-02-01 10:32] VITALS: BP 124/68; BMI 45.0
[2017-02-01 11:23] LABS: INR 1.06 (0.85-1.17); PROTIME 13.7 SECONDS (11.6-15.0)
--- NOTE | 2017-02-01 15:32 | NUR ---
FSBS 180
--- NOTE | 2017-02-01 15:33 | NUR ---
WOUND VAC IN PLACE ON VERAFLOW, CYCLE PERFORMED SUCCESSFULLY IN PACU
[2017-02-01 16:20] VITALS: BP 130/77
--- NOTE | 2017-02-01 16:28 | NUR ---
RECIEVED FROM OR BY STRETCHER. VS WNL. LEFT ARM DRSG TO WOUND VAC AND IRREGATION NOTED. CALL LIGHT IN REACH. WILL COTN PLAN OF CARE.
[2017-02-01 16:51] VITALS: BP 130/77; BMI 45.0
--- NOTE | 2017-02-01 19:00 | NUR ---
RECEIVED REPORT AND ASSUMED PT CARE FROM DAY SHIFT NURSE @ THIS TIME.
[2017-02-01 21:44] VITALS: BP 117/52
[2017-02-01] MEDS ORDERED: LANTUS INSULIN10 ML SC (22:19)
[2017-02-02 00:35] VITALS: BP 116/58
[2017-02-02 04:36] VITALS: BP 94/42
--- NOTE | 2017-02-02 07:37 | NUR ---
ASSESSMENT COMPLETED. O2 AT 3 L/M PER NC. RIGHT HEMOSPLIT WITH ZOFRAN AT 4.7. LEFT AVF WITH WOUND VAC WITH IRRAGATION. DENIES ANY NEEDS. CALL LIGHT IN REACH WITH SR UP. FAMILY AT BEDSIDE.
[2017-02-02 08:00] VITALS: BP 131/61
--- NOTE | 2017-02-02 10:38 | NUR ---
LYING QUIETLY. DENIES ANY NEEDS. CALL LIGHT IN REACH WITH SR UP. WILL MONITOR
[2017-02-02 12:00] VITALS: BP 141/68
[2017-02-02 12:21] VITALS: Ht 154.9 cm; Wt 106.9 kg
--- NOTE | 2017-02-02 12:39 | NUR ---
RESTING QUIETLY. DENIES ANY NEEDS. IV INFUSING WELL. WILL MONITOR
[2017-02-02 16:00] VITALS: BP 133/69
--- NOTE | 2017-02-02 17:39 | NUR ---
LYING QUIETLY WITH HOB UP. DENIES ANY NEEDS. WOUND VAC IN USE. WILL MONITOR
--- NOTE | 2017-02-02 18:47 | NUR ---
RESTING QUIETLY NAD NOTED
--- NOTE | 2017-02-02 19:15 | NUR ---
INITIAL ROUNDS MADE. PT SITTING UP IN BED WITH FAMILY IN ROOM. LEFT ARM AVF TO WOUND VAC AND PATENT. CALL LIGHT IN REACH. WILL CONT TO MONITOR.
[2017-02-02 20:30] VITALS: BP 126/55
[2017-02-03 00:30] VITALS: BP 158/78
--- NOTE | 2017-02-03 00:55 | NUR ---
DATA KEYER AT BEDSIDE FOR VS, NEEDS ADDRESSED. CALL LIGHT IN REACH. WILL CONT TO MONITOR.
[2017-02-03 04:30] VITALS: BP 129/60
[2017-02-03 05:58] LABS: BASOPHILS 0.1 % (0.0-2.0); EOSINOPHILS 3.3 % (0-7); HEMATOCRIT 34.6 % (36.0-48.0); HEMOGLOBIN 10.9 g/dL (12-16); IMMATURE GRANULOCYTES 0.7 % (0-5); LYMPHOCYTES 12.7 % (15-50); MCH 29.9 pg (26.0-34.0); MCHC 31.5 g/dL (31.0-37.0); MCV 95.1 fL (80.0-100.0); MEAN PLATELET VOLUME 9.8 fL (7.4-10.4); MONOCYTES 6.3 % (2-11); NEUTROPHILS 76.9 % (40-80); PLATELET COUNT 197 10x3/uL (130-400); RBC 3.64 10x6/uL (4.00-5.40)
[2017-02-03 05:59] LABS: WBC 8.1 10x3/uL (4.8-10.8)
[2017-02-03 06:30] LABS: ANION GAP 20.1 mmol/L (8-16); POTASSIUM - SERUM 4.1 mmol/L (3.5-5.1); VANCOMYCIN - RANDOM 14.9 ug/mL (10.0-20.0)
[2017-02-03 06:34] LABS: CREATININE - SERUM 8.8 mg/dL (0.6-1.3); PHOSPHOROUS 9.4 mg/dL (2.5-4.9)
--- NOTE | 2017-02-03 06:43 | NUR ---
RESTING WELL WITH EYES CLOSED, CONT TO MONITOR.
[2017-02-03 08:00] VITALS: BP 125/54
--- NOTE | 2017-02-03 11:02 | NUR ---
RESTING QUIETLY NAD NOTED RESP UNLABORED WILL CONTINUE TO MONITOR
[2017-02-03 12:00] VITALS: BP 139/70
[2017-02-03 16:00] VITALS: BP 137/70
--- NOTE | 2017-02-03 18:21 | NUR ---
LYING QUIETLY. AT BEDSIDE.DENIES ANY NEEDS. CALL LIGHT IN REACH WITH SR UP. WILL MONITOR
--- NOTE | 2017-02-03 19:33 | NUR ---
INITIAL ROUNDS COMPLETED. PT DENIES ANY DISCOMFORT. WILL CONITNUE TO MONITOR.
[2017-02-03 20:00] VITALS: BP 151/63
--- NOTE | 2017-02-04 01:19 | NUR ---
ASSESSMENT COMPLETED AT 1935 HRS. VSS. O2 3LNC. R CHEST HEMOSPLIT NOTED. LUNGS ESSENTIALLY CTA. WOUND VAC TO L AVF DRAINING SEROUS FLUID. WOUND VAC DRESSING LEAKING UNDER L AXILLA. TEGREDERM APPLIED AND LEAKING GREATLY REDUCED. PM FSBS 304. HUMALOG GIVEN SUB-Q PER S/S. SCHEDULED LANTUS GIVEN. PT CURRENTLY RESTING WITH EYES CLOSED. RESP EVEN AND REGULAR. SR UP X2, CALL LIGHT WITHIN REACH.
--- NOTE | 2017-02-04 02:26 | NUR ---
PT RESTING WITH EYES CLOSED. RESP EVEN AND REGULAR. SR UP X2, CALL LIGHT WITHIN REACH.
[2017-02-04 03:49] VITALS: BP 151/61
--- NOTE | 2017-02-04 04:17 | NUR ---
PT RESTING WITH EYES CLOSED. RESP EVEN AND REGULAR. SR UP X2 CALL LIGHT WITHIN REACH.
[2017-02-04 05:28] LABS: BASOPHILS 0.2 % (0.0-2.0); EOSINOPHILS 3.5 % (0-7); HEMOGLOBIN 10.4 g/dL (12-16); MCH 29.5 pg (26.0-34.0); MCHC 31.5 g/dL (31.0-37.0); MCV 93.8 fL (80.0-100.0); MEAN PLATELET VOLUME 9.4 fL (7.4-10.4); MONOCYTES 8.6 % (2-11); NEUTROPHILS 59.7 % (40-80); PLATELET COUNT 197 10x3/uL (130-400); RBC 3.52 10x6/uL (4.00-5.40); RDW 13.7 % (11.5-14.5); WBC 6.3 10x3/uL (4.8-10.8)
[2017-02-04 05:50] LABS: ANION GAP 17.5 mmol/L (8-16); CARBON DIOXIDE 23.4 mmol/L (21.0-32.0); CREATININE - SERUM 9.1 mg/dL (0.6-1.3); POTASSIUM - SERUM 3.9 mmol/L (3.5-5.1)
--- NOTE | 2017-02-04 06:55 | NUR ---
VSS SVETLANA NGIHT. PT DENIED ANY DISCOMFORT. NEEDS MET; WILL CONTINUE TO MONITOR.
[2017-02-04 08:17] VITALS: BP 158/76
--- NOTE | 2017-02-04 11:48 | NUR ---
WOUND CARE/VAC DRESSING CHANGE/VERAFLO: PT HAS 3 OPEN WOUNDS ON LEFT UPPER ARM 1-AXILLA 11CM X 2CM X 2CM 2-MIDDLE UPPER ARM 5.5CM X 2.5CM X 1.4CM 3-ANTECUBITAL 7CM X 2CM X 0.5CM ALL WOUNDS ARE RED AND HAVE NO ODOR OR DRAINAGE PLACED BLACK FOAM ON EACH WOUND BED COVERED WITH DRAPE - PIGTAILED ALL TOGETHER AND SECURED. SETTINGS ARE ON -125MMHG LOW, WITH NS INSTILLATION Q 3.5 HOURS 40CC/SOAK 10 MIN. PT TOLERATED THE DRESSING CHANGE WELL. WILL CONTINUE TO MONITOR.
[2017-02-04 12:31] VITALS: BP 147/61
--- NOTE | 2017-02-04 15:40 | NUR ---
ALERT AND ORIENTED X4. TAKEN TO DIALYSIS VIA WHEELCHAIR. CONTINUE PLAN OF CARE AND SAFETY PRECAUTIONS.
[2017-02-04 15:55] VITALS: BP 152/65
[2017-02-04 20:00] VITALS: BP 133/55
--- NOTE | 2017-02-04 22:53 | NUR ---
BENADRYL 25 MG GIVEN AT PT REQUEST FOR C/O ITCHING.
--- NOTE | 2017-02-05 00:27 | NUR ---
MIRROR FABRICATION SUPERVISOR AT BEDSIDE FOR VS, NEEDS ADDRESSED. CALL LIGHT IN REACH. WILL CONT TO MONITOR.
[2017-02-05 02:00] VITALS: BP 100/45
--- NOTE | 2017-02-05 02:00 | NUR ---
PT STATING THAT SHE FEELS FUNNY, ASKED IF SHE CAN HAVE HER BLOOD SUGAR CHECKED, BS 177. ASKED PT IF SHE NEEDED A SNACK, PT DECLINED AT THIS TIME, WILL CONT TO MONITOR.
--- NOTE | 2017-02-05 03:44 | NUR ---
RESTING WITH EYES CLOSED, RESPERATIONS EVEN, NO S/S DISTRESS NOTED.
[2017-02-05 05:58] LABS: BASOPHILS 0.3 % (0.0-2.0); EOSINOPHILS 2.7 % (0-7); HEMATOCRIT 34.4 % (36.0-48.0); HEMOGLOBIN 10.9 g/dL (12-16); IMMATURE GRANULOCYTES 0.8 % (0-5); LYMPHOCYTES 18.6 % (15-50); MCH 29.7 pg (26.0-34.0); MCHC 31.7 g/dL (31.0-37.0); MCV 93.7 fL (80.0-100.0); MEAN PLATELET VOLUME 9.6 fL (7.4-10.4); NEUTROPHILS 71.6 % (40-80); PLATELET COUNT 200 10x3/uL (130-400); RBC 3.67 10x6/uL (4.00-5.40); RDW 13.8 % (11.5-14.5); WBC 7.8 10x3/uL (4.8-10.8)
[2017-02-05 06:16] LABS: ANION GAP 13.5 mmol/L (8-16); CALCIUM 8.4 mg/dL (8.5-10.1); CARBON DIOXIDE 28.4 mmol/L (21.0-32.0); CREATININE - SERUM 6.9 mg/dL (0.6-1.3); POTASSIUM - SERUM 3.9 mmol/L (3.5-5.1); VANCOMYCIN - RANDOM 16.8 ug/mL (10.0-20.0)
[2017-02-05 08:39] VITALS: BP 143/63
--- NOTE | 2017-02-05 09:57 | OP ---
PATIENT NAME: MEREDITH LYONS MEDICAL RECORD: [id number] :77 LOCATION:D. D.2125 ADMISSION DATE:02/01/17 SURGEON: MAMIE OLIVAS MD DATE OF OPERATION: 02/01/2017 REFERRING PHYSICIANS: Dr. Chao and Dr. Rneee. PREOPERATIVE DIAGNOSIS: Thrombosis of left upper extremity arteriovenous graft implanted approximately 6 weeks ago. ADDITIONAL DIAGNOSES: End-stage renal disease, on hemodialysis with a right internal jugular tunneled central dialysis catheter and insulin-dependent diabetes with severe end-organ target complications and history of severe postoperative nausea and vomiting and additionally a diagnosis of super morbid obesity. POST OPERATIVE DIAGNOSES: Thrombosis of left upper extremity arteriovenous graft implanted approximately 6 weeks ago, end-stage renal disease, on hemodialysis with a right internal jugular tunneled central dialysis catheter and insulin-dependent diabetes with severe end-organ target complications and history of severe postoperative nausea and vomiting and additionally a diagnosis of super morbid obesity. She also had infected left upper extremity arteriovenous graft, which was also thrombosed. OPERATION PERFORMED: Today, exploration and removal of infected AV graft from the left upper extremity. SURGEON: Mamie Olivas MD ANESTHESIA: General with LMA per LIMNOLOGY TEACHER. PREOPERATIVE NOTE: Ms. Lyons is a 41-year-old obese, diabetic patient, who had dialyzed for some time with a left forearm AV fistula, which finally failed and had to be ligated and about 6 weeks ago, I implanted a Propaten hybrid PTFE AV graft in the left upper extremity and axillary-axillary loop duration. Two weeks ago, she returned with a graft thrombosis and was found at surgery to have no tissue ingrowth into the graft, which was loose in the subcutaneous tunnel. Cultures at that time were negative and flow was restored in the graft with placement of a stent in the axillary vein overlapping the hybrid graft stent and she was not placed on any anticoagulation. The graft had remained patent and she had been doing well without signs of infection or sepsis until earlier this week when she presented for dialysis and it was noted that the graft was thrombosed. She was sent back to me and I saw her back in the office yesterday. There are no outward signs of infection. She has no fever or symptoms of sepsis or SIRS, the graft is thrombosed. She is brought to the operating room at this time with the intent of performing a fistulogram and hopefully percutaneous mechanical thrombolysis, though expecting likely to need to place additional stenting or angioplasty in the axillary or subclavian veins. DESCRIPTION OF PROCEDURE: Under anesthesia in supine position, the patient was prepped and draped in sterile manner. Actually, the patient began the procedure to be done under local with IV sedation and when it became necessary to do a larger open operation, she was administered a general anesthetic. Under local, I performed an ultrasound-guided access with micropuncture technique of the venous limb of the graft and noted just as last time 4 weeks ago, the graft was OPERATIVE REPORT [id number] MEREDITH LYONS not fixed in the tunnel and it was really impossible to do a percutaneous procedure. I then made an incision through reopening the old axillary incision, and other incision distally just above the antecubital space. Indeed, the graft was totally without any fixation and was swimming in a layer of bloody slimy fluid or mucoid fluid. This fluid was swabbed for Gram stain as well as culture and sensitivity, aerobic and anaerobic. The initial stat Gram stain result has few wbc's and no organisms seen. Through the axillary incision, I exposed the axillary and arterial anastomosis, although the exposure really was limited due to the fibrosis and friability of the surrounding tissues and I elected not to try to fully control these vessels and removed the entire PTFE graft with resultant need for patching, etc. Instead, I was able to actually pull out about half of the hybrid anastomotic stent in the venous anastomosis and then suture ligated it with 0 Vicryl and transected the prosthesis through the stent. I was able to then transect the arterial lumen or limb near the arterial anastomosis and I removed the majority of the graft from the subcutaneous tunnel through the already existing incisions. I made one other incision on the lateral aspect of the arm later on for access to irrigate the tunnel. The arterial anastomosis was most concerning. I was able to expose it, but I did not control the artery above and below and therefore I just clamped the graft and divided it and oversewed the small stump of remaining PTFE with 5-0 Prolene. The portion of the PTFE was actually sent for culture and nothing was sent for histologic study. The wound was irrigated with Ancef and gentamicin solution and I closed some of the deeper tissues over the axillary and venous anastomosis and then placed Adaptic at the base of that axillary incision and dressed all 3 incisions then with black wound VAC sponge and applied a standard wound VAC dressings with plans for q.4 hour Dakin solution irrigation and then a dressing change of the VAC starting Saturday 3 times a week. The patient was awakened and taken to the recovery room in stable condition. There had been fortunately minimal blood loss during the procedure. We did type and screen her during the operation, but she was not transfused. All sponges, instruments, and needles were accounted for. No drain was used and no specimen was submitted for histopathology. Swabs were sent to the lab for aerobic and anaerobic culture and sensitivity. The swab was sent for Gram stain and a short segment less than 3 inches in length of the PTFE was sent for culture. TRANSINT:[id number] Voice Confirmation ID: [id number] DOCUMENT ID: [id number] MAMIE OLIVAS MD at 0957 CC: ROSY RENEE MD and CHRISTIANE CHAO III MD [id number] DICTATION DATE: 02/01/17 1543 INVESTMENT FUND MANAGER: 02/01/17 2248 [address]M [address] [place] [id number] [place] [id number]
--- NOTE | 2017-02-05 12:00 | NUR ---
ALERT AND ORIENTED X4. LINEN CHANGE AND BATH COMPLETE. SITTING UP IN CHAIR. WOUND VAC TO LT UPPER ARM CLEAN INTACT. FREE FROM AIR LEAKS. DENIES PAIN OR SOB. CONTINUE PLAN OF CARE AND SAFETY PRECAUTIONS.
[2017-02-05 12:03] VITALS: BP 142/69
[2017-02-05 16:34] VITALS: BP 127/55
--- NOTE | 2017-02-05 18:06 | NUR ---
SITTING UP IN BED. ALERT AND ORIENTED X4. DENIES PAIN OR SOB. NO CHANGE. WOUND VAC CLEAN DRY INTACT. NO AIR LEAKS. PREPARE SHIFT CHANGE REPORT. CONTINUE PLAN OF CARE AND SAFETY PRECAUTIONS.
[2017-02-05 21:03] VITALS: BP 156/71
--- NOTE | 2017-02-05 21:11 | NUR ---
HS MEDS GIVEN, BS 186, COVERED PER S/S.
--- NOTE | 2017-02-06 01:03 | NUR ---
PATIENT PATHWAYS: [facility] MWF @ 9:00AM. MED RECS FORWARDED TO HOME UNIT. BMM Dialysis Coordinator.
[2017-02-06 01:48] VITALS: BP 102/44
[2017-02-06 02:00] VITALS: BP 123/50
--- NOTE | 2017-02-06 03:45 | NUR ---
RESTING WITH EYES CLOSED, RESPERATIONS EVEN, NO S/S DISTRESS NOTED.
[2017-02-06 06:00] VITALS: BP 135/63
[2017-02-06 06:14] LABS: BASOPHILS 0.2 % (0.0-2.0); EOSINOPHILS 2.3 % (0-7); HEMATOCRIT 34.4 % (36.0-48.0); HEMOGLOBIN 10.9 g/dL (12-16); IMMATURE GRANULOCYTES 0.6 % (0-5); MCH 29.5 pg (26.0-34.0); MCHC 31.7 g/dL (31.0-37.0); MEAN PLATELET VOLUME 9.8 fL (7.4-10.4); MONOCYTES 5.2 % (2-11); NEUTROPHILS 83.7 % (40-80); PLATELET COUNT 185 10x3/uL (130-400); RDW 13.7 % (11.5-14.5); WBC 6.5 10x3/uL (4.8-10.8)
[2017-02-06 06:46] LABS: ANION GAP 16.3 mmol/L (8-16); CARBON DIOXIDE 23.6 mmol/L (21.0-32.0); CREATININE - SERUM 7.9 mg/dL (0.6-1.3); POTASSIUM - SERUM 3.9 mmol/L (3.5-5.1); VANCOMYCIN - RANDOM 14.1 ug/mL (10.0-20.0)
[2017-02-06 08:05] VITALS: BP 110/64
[2017-02-06 12:07] VITALS: BP 137/75
--- NOTE | 2017-02-06 12:43 | NUR ---
WOUND CARE REASSESSMENT AND WOUND VAC DRESSING CHANGE: PT HAS 3 OPEN WOUNDS ON LEFT UPPER ARM-ALL HAVE IMPROVED SINCE LAST DRESSING CHANGE: 1-AXILLA 10CM X 2CM X 1.5CM 2-MIDDLE UPPER ARM 5.5CM X 2.5CM X 0.8CM 3-ANTECUBITAL 6CM X 1.5CM X 0.3CM PLACED ADAPTIC TO WOUND BED OF AXILLA AND PLACED BLACK FOAM TO WOUND BED. BLACK FOAM PLACED DIRECTLY ON WOUND BEDS OF OF MID UPPER ARM AND ANTECUBITAL. ALL WOUNDS WERE PIGTAILED TOGETHER, NEGATIVE PRESSURE WAS ACHIEVED. SETTINGS ARE -125MMHG LOW CONTINUOUS WITH 40CC NS INSTILLING Q3.5 HOURS AND SOAKING FOR 10 MINUTES. PT TOLERATED WELL. WOUND CARE CONTINUES TO MONITOR.
--- NOTE | 2017-02-06 13:40 | NUR ---
Nutrition Follow Up: Pt was out of the room at the time of RD visit. Chart reviewed. Pt with wound vac to LUE - wound care following. Pt is eating 81% meal avg on a renal ADA diet. I>O. Wt stable. +BM 02/03/17. Labs noted - BUN, Cr, Glucose elevated. Na low. Meds noted including Vanc, Lantus, Humalog, Lasix. Pt with good po intake at this time. Rec continue current diet. RD following.
[2017-02-06 16:00] VITALS: BP 120/49
--- NOTE | 2017-02-06 17:39 | NUR ---
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 Yes * How many steps to enter\exit or inside your home? two * PCP DR Chantal EMMANUEL IN [place] * Pharmacy [facility] * Preadmission Environment Home with Family * ADLs Independent * Equipment None * List name and contact numbers for known caregivers / representatives who currently or will assist patient after discharge: VERNA ROMERO, SPOUSE, * Community resources currently utilized None * Additional services required to return to the preadmission environment? Yes * Can the patient safely return to the preadmission environment? Yes * Has this patient been hospitalized within the prior 30 days at any hospital? Yes Discharge Planning Comments: CM MET WITH PATIENT TO ASSESS DC PLAN/NEEDS. PT STATED THAT SHE LIVES AT HOME WITH HER FAMILY AND IS INDEPENDENT IN HER CARE/ADL'S. SHE IS CHRONIC HD PATIENT AND GETS OPHD IN [place] M/W/F AT 0900AM. HER FAMILY WILL BE AVAILABLE TO DRIVE HER HOME AT [place]. SHE CURRENTLY HAS A WOUND WITH WOUND VAC THAT WILL REQUIRE HOME HEALTH FOR DRESSING CHANGES. WOUND VAC ORDER WAS SENT TO [facility] AND APPROVED AND CAN BE DELIVERED TO PATIENT SOON DC IS KNOWN. [facility] IS WORKING TO ARRANGE SERVICES, BUT GIVEN PT'S ADDRESS LOCATION AND SCHEDULE CONFLICTS DUE TO HD HAVING DIFFUCULTY FINDING HH AGENCY THAT WILL ACCEPT PATIENT FOR SERVICES. CM SPOKE WITH JEFF AT [facility] OFFICE AND THEY STATED THEY CANNOT ADMIT PATIENT AT THIS TIME. [facility] ALSO SPOKE WITH [facility] WHO WILL CONSIDER ADMITTING PATIENT BUT HAS TO GET SATURDAY DRESSING CHANGE SCHEDULE APPROVED BY [facility]. [facility] WILL CONTINUE TO FOLLOW AND ARRANGE ALL NEEDED DC SERVICES. DC IMM SIGNED AND PLACED IN CHART. Programming Specialist: Ene Murray RN, [facility]
--- NOTE | 2017-02-06 20:50 | NUR ---
HS MEDS GIVEN WITH FRESH ICE WATER, BS 263, COVERED PER S/S. HS SNACK PROVIDED, NO OTHER NEEDS STATED AT THIS TIME.
--- NOTE | 2017-02-06 22:25 | NUR ---
RESTING QUIETLY, RESPERATIONS EVEN, NO S/S DISTRESS NOTED.
[2017-02-07] VITALS: BP 95/52
--- NOTE | 2017-02-07 00:33 | NUR ---
BOXING INSTRUCTOR AT BEDSIDE TO OBTAIN VITALS, CALL LIGHT IN REACH. WILL CONTINUE WITH PLAN OF CARE.
[2017-02-07 04:00] VITALS: BP 128/66
--- NOTE | 2017-02-07 04:38 | NUR ---
RESTING ON LEFT SIDE, RESPERATIONS EVEN, NO S/S DISTRESS NOTED.
[2017-02-07 06:37] LABS: BASOPHILS 0.2 % (0.0-2.0); EOSINOPHILS 2.4 % (0-7); HEMATOCRIT 32.2 % (36.0-48.0); HEMOGLOBIN 10.2 g/dL (12-16); IMMATURE GRANULOCYTES 1.6 % (0-5); LYMPHOCYTES 11.3 % (15-50); MCH 29.5 pg (26.0-34.0); MCHC 31.7 g/dL (31.0-37.0); MCV 93.1 fL (80.0-100.0); MEAN PLATELET VOLUME 9.7 fL (7.4-10.4); MONOCYTES 8.7 % (2-11); NEUTROPHILS 75.8 % (40-80); PLATELET COUNT 164 10x3/uL (130-400); RBC 3.46 10x6/uL (4.00-5.40)
[2017-02-07 07:00] LABS: ANION GAP 14.2 mmol/L (8-16); CALCIUM 9.1 mg/dL (8.5-10.1); CARBON DIOXIDE 26.4 mmol/L (21.0-32.0); POTASSIUM - SERUM 3.6 mmol/L (3.5-5.1); VANCOMYCIN - RANDOM 17.4 ug/mL (10.0-20.0)
[2017-02-07 07:08] LABS: CREATININE - SERUM 5.5 mg/dL (0.6-1.3)
--- NOTE | 2017-02-07 07:42 | NUR ---
ASSESSMENT COMPLETED. PT HAS WOUND VAC TO LEFT ARM. RIGHT HEMOSPLIT NOTED. DENIES ANY NEEDS. SHE SAYS SHE MAY GO HOME TODAY. SR UP WITH CALL LIGHT IN REACH WITH SR UP
[2017-02-07 07:48] VITALS: BP 143/62
[2017-02-07] MEDS ORDERED: LANTUS INSULIN10 ML SC (11:26)
[2017-02-07] MEDS ORDERED: HYDROCODON-ACE1 EAC6 PO (11:29)
[2017-02-07 12:05] VITALS: BP 128/46
--- NOTE | 2017-02-07 14:35 | NUR ---
WOUND CARE: DISCONTINUED THE VERAFLO VAC SYSTEM AND STARTED ACTIVAC SYSTEM FOR HOME USE. SETTINGS ARE -125MMHG ON LOW CONTINUOUS PRESSURE. TRAC PADS REPLACED DURING THIS TIME IN ORDER TO TRANSFER THERAPY TO HOME SYSTEM. THE VAC DRESSINGS WERE CHANGED SATURDAY (FEB 06) AND THE NEXT CHANGE IS SET UP FOR SATURDAY (FEBRUARY 09) WITH HOME HEALTH. DRESSINGS WILL BE CHANGED ON ., ., AND SATURDAY BY HOME HEALTH NURSE. INFORMATION GIVEN TO PT ABOUT HOME SYSTEM AND SHE HAS DEMONSTRATED HER ABILITY TO PAUSE THE THERAPY, CLAMP TUBING AND CHANGE THE CANNISTER. SHE ALSO HAS DEMONSTRATED HOW TO LOOK FOR AN AIR LEAK AND CAN PATCH IT WITH DRAPE.
--- NOTE | 2017-02-07 15:11 | NUR ---
HOME HEALTH ORDERED BY DR OLIVAS WAS ARRANGED WITH [facility] OUT OF [place], [place]. HH KEYLA FORM SIGNED AND PLACED IN CHART. HH START OF SERVICE WILL BE Saturday02/09/17 FOR FIRST WOUND VAC DRESSING CHANGE. HOME [facility] WOUND VAC WAS DELIVERED TO PATIENT'S ROOM AND CONNECTED BY WOUND NURSE. PT WILL BE GETTING IV ABX AT [facility] WHICH WERE ARRANGED BY [facility]. PT VOICED NO OTHER DC NEEDS.
--- NOTE | 2017-02-07 15:49 | NUR ---
PT DISCHARGED. INSTRUCTIONS GIVEN TO PT AND FAMILY. TO PRIVATE CAR PER WHEELCHAIR.
== END 2017-02-07 15:52 | disposition home health service (06) | DRG 264 ==
LOC: D.OPS 09:12 → D.M2 16:05 → D.OPS 16:06 → D.M2 02-07 15:52
PROVIDERS: Internal Medicine Nephrology; Surgery; ADMIT Internal Medicine Nephrology
PROC: 03PY0KZ Removal of Nonautologous Tissue Substitute from Upper Artery, Open Approach (ICD-10-PCS; principal; 2017-02-01 12:30)
PROC: 5A1D60Z (ICD-10-PCS; 2017-02-04)
DX: T82.868A Thrombosis due to vascular prosthetic devices, implants and grafts, initial encounter (principal); N18.6 End stage renal disease; I12.0 Hypertensive chronic kidney disease with stage 5 chronic kidney disease or end stage renal disease; Z68.42 Body mass index [BMI] 45.0-49.9, adult; Y83.8 Other surgical procedures as the cause of abnormal reaction of the patient, or of later complication, without mention of misadventure at the time of the procedure; T82.7XXA Infection and inflammatory reaction due to other cardiac and vascular devices, implants and grafts, initial encounter; E11.22 Type 2 diabetes mellitus with diabetic chronic kidney disease; Z99.2 Dependence on renal dialysis; Z79.4 Long term (current) use of insulin; E11.40 Type 2 diabetes mellitus with diabetic neuropathy, unspecified; N25.0 Renal osteodystrophy; E66.01 Morbid (severe) obesity due to excess calories

== ENCOUNTER 2017-03-19 07:40 | Day surgery (SDC) | payer MEDICARE ==
[~2017-03-19 07:40] MED LIST changes: +HYDROCODON-ACE1 EAC6 PO; +LANTUS INSULIN10 ML SC; +NOVOLOG INJ FLE SQ; +ULTRAM50 MG PO
[2017-03-19 10:14] LABS: BASOPHILS 0.2 % (0-2); EOSINOPHILS 1.5 % (0-7); HEMATOCRIT 35.9 % (36.0-48.0); HEMOGLOBIN 11.3 g/dL (12-16); IMMATURE GRANULOCYTES 0.5 % (0-5); MCH 29.1 pg (26.0-34.0); MCHC 31.5 g/dL (31.0-37.0); MCV 92.5 fL (80.0-100.0); MEAN PLATELET VOLUME 9.8 fL (7.4-10.4); MONOCYTES 6.4 % (2-11); NEUTROPHILS 69.4 % (40-80); PLATELET COUNT 195 10x3/uL (130-400); RBC 3.88 10x6/uL (4.00-5.40); RDW 14.1 % (11.5-14.5); WBC 5.9 10x3/uL (4.8-10.8)
[2017-03-19 10:23] LABS: ANION GAP 18.8 mmol/L (8-16); CALCIUM 9.3 mg/dL (8.5-10.1); CARBON DIOXIDE 24.6 mmol/L (21.0-32.0); CREATININE - SERUM 5.3 mg/dL (0.6-1.3); POTASSIUM - SERUM 4.4 mmol/L (3.5-5.1)
[2017-03-19 10:24] LABS: APTT 28.2 SECONDS (22.8-39.4); INR 1.02 (0.85-1.17); PROTIME 13.2 SECONDS (11.6-15.0)
[2017-03-20 05:50] LABS: BASOPHILS 0.2 % (0-2); HEMATOCRIT 38.5 % (36.0-48.0); HEMOGLOBIN 11.6 g/dL (12-16); IMMATURE GRANULOCYTES 0.6 % (0-5); LYMPHOCYTES 13.6 % (15-50); MCH 28.9 pg (26.0-34.0); MCHC 30.1 g/dL (31.0-37.0); MONOCYTES 7.2 % (2-11); NEUTROPHILS 77.4 % (40-80); PLATELET COUNT 197 10x3/uL (130-400); RBC 4.01 10x6/uL (4.00-5.40); RDW 14.1 % (11.5-14.5); WBC 6.3 10x3/uL (4.8-10.8)
[2017-03-20 06:10] LABS: ANION GAP 19.6 mmol/L (8-16); CALCIUM 8.7 mg/dL (8.5-10.1); CARBON DIOXIDE 22.1 mmol/L (21.0-32.0); CREATININE - SERUM 6.4 mg/dL (0.6-1.3); POTASSIUM - SERUM 4.7 mmol/L (3.5-5.1)
[2017-03-20] MEDS ORDERED: HYDROCODONE-APA1 TAB PO (11:50)
== END 2017-03-20 15:41 | disposition home or self-care (01) ==
LOC: D.OPS 07:40 → D.M2 16:32
PROVIDERS: Internal Medicine Nephrology; Surgery
DX: E11.22 Type 2 diabetes mellitus with diabetic chronic kidney disease (principal); N18.6 End stage renal disease; Z99.2 Dependence on renal dialysis; Z79.4 Long term (current) use of insulin; E11.40 Type 2 diabetes mellitus with diabetic neuropathy, unspecified; Z85.3 Personal history of malignant neoplasm of breast; Z01.812 Encounter for preprocedural laboratory examination; G47.30 Sleep apnea, unspecified; K21.9 Gastro-esophageal reflux disease without esophagitis; D63.1 Anemia in chronic kidney disease; Z79.891 Long term (current) use of opiate analgesic; Z79.899 Other long term (current) drug therapy